=== PATIENT | male | born 1975 | race American Indian/Alaskan Native ===

== ENCOUNTER 2019-11-20 21:55 | Observation (INO) | payer MEDICAID ==
[2019-11-20] MEDS ORDERED: ASPIRIN 81 MG TAB CHEW PO ONE (22:08)
[2019-11-20] MEDS ORDERED: NITROGLYCERIN 2% OINT 1 GM TP ONE (22:08)
[2019-11-20] MEDS ORDERED: MORPHINE 4 MG/1 ML INJ IV ONE ×2 (22:14→23:07)
[2019-11-20 22:51] LABS: Hematocrit 27.2 % (35.5-45.6); Mean Corpuscular HGB Conc 33 % (32-34); Mean Corpuscular Volume 84 fl (84-94); Platelet Count 281 K/mm3 (140-440); Red Blood Count 3.23 M/mm3 (3.65-5.03); Red Cell Distribution Width 14.8 % (13.2-15.2)
[2019-11-20 23:11] LABS: INR 0.98 (0.87-1.13)
[2019-11-20 23:17] LABS: Albumin 4.5 g/dL (3.9-5); Calcium 9.6 mg/dL (8.4-10.2)
[2019-11-21] MEDS ORDERED: FUROSEMIDE 40 MG/4 ML INJ IV ONE (00:01)
[2019-11-21] MEDS ORDERED: ASPIRIN 325 MG TAB PO ONE (00:01)
[2019-11-21] MEDS ORDERED: hydrALAZINE 20 MG/1 ML INJ IV ONE (00:01)
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
[2019-11-21 00:12] LABS: Chol/HDL Ratio 3.53 %
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
[2019-11-21] MEDS ORDERED: niCARdipine DRIP 40 MG/200 ML BAG ONE (01:37)
[2019-11-21] MEDS: niCARdipine 50 MG in SODIUM CHLORIDE 0.9% 250ML 230 ML IV SCH ×3 (01:48→07:46)
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
--- NOTE | 2019-11-21 03:02 | Cat Scan Report ---
CT HEAD WITHOUT CONTRAST INDICATION: evaluation of interval change of subarachnoid. TECHNIQUE: All CT scans at this location are performed using CT dose reduction for ALARA by means of automated e xposure control. COMPARISON: One day prior. FINDINGS: HEMORRHAGE: There is no significant change in the punctate subarachnoid densities along the anterior falx and at the right frontoparietal region. EXTRA-AXIAL SPACES: Normal in size and morphology for the patient's age. VENTRICULAR SYSTEM: Normal in size and morphology for the patient's age. BRAIN PARENCHYMA: No acute findings. MIDLINE SHIFT OR HERNIATION: None. ORBITS: Normal as visualized. SOFT TISSUES OF HEAD: Normal. CALVARIUM: Normal. VISUALIZED PARANASAL SINUSES AND MASTOID AIR CELLS: Clear. ADDITIONAL FINDINGS: None. IMPRESSION: 1. No significant change. Punctate subarachnoid densities seen on the exam from one day prior are sta ble. Signer Name: Tj Thacker MD Signed: 11/21/2019 2:57 AM Workstation Name: [id number]
[2019-11-21 03:06] LABS: Total Cells Counted 100
[2019-11-21 03:08] LABS: Anisocytosis Few; Ovalocytes Few; Target Cells Few
[2019-11-21 03:09] LABS: Platelet Estimate Consistent w Auto
[2019-11-21] MEDS ORDERED: ONDANSETRON 4 MG/2 ML INJ IV PRN (03:44)
[2019-11-21] MEDS ORDERED: MAGNESIUM HYDROXIDE (MOM) ORAL LIQD UDC PO PRN (03:44)
[2019-11-21] MEDS ORDERED: ACETAMINOPHEN 325 MG TAB PO PRN (03:44)
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
[2019-11-21 04:56] LABS: Amphetamine Screen,Urine PRESUMPTIVE NEGATIVE; Benzodiazepines Screen,Urine PRESUMPTIVE NEGATIVE; Cannabinoid Screen,Urine PRESUMPTIVE POSITIVE; Cocaine Screen,Urine PRESUMPTIVE POSITIVE; Methadone Screen,Urine PRESUMPTIVE NEGATIVE; Opiate Screen,Urine PRESUMPTIVE NEGATIVE
[2019-11-21] MEDS ORDERED: ONDANSETRON 4 MG/2 ML INJ ONE (05:49)
[2019-11-21] MEDS ORDERED: SODIUM CHLORIDE 0.9% 100 ML IV PRN (08:27)
[2019-11-21] MEDS ORDERED: HEPARIN 10,000 UNITS/10 ML VIAL IV PRN (08:27)
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
[2019-11-21] MEDS ORDERED: SODIUM CHLORIDE IV PRN (09:00)
[2019-11-21] MEDS ORDERED: NICARDIPINE IV PRN (09:00)
[2019-11-21 10:04] LABS: Hepatitis B Surface Antigen Non-Reactive (Negative); Hepatitis C Virus Antibody Non-Reactive (NonReactive)
[2019-11-21] MEDS ORDERED: hydrALAZINE 25 MG TAB ONE (10:14)
[2019-11-21] MEDS: hydrALAZINE 25 MG TAB PO SCH ×3 (10:51→21:55)
[2019-11-21] MEDS: NIFEdipine XL 30 MG TAB PO SCH ×2 (12:09→21:53)
[2019-11-21] MEDS ORDERED: oxyCODONE /ACETAMINOPHEN 5-325MG TAB ONE (12:46)
[2019-11-21] MEDS: oxyCODONE /ACETAMINOPHEN 5-325MG TAB PO PRN ×2 (12:48→19:32)
[2019-11-22] MEDS: oxyCODONE /ACETAMINOPHEN 5-325MG TAB PO PRN ×3 (05:57→18:53)
[2019-11-22] MEDS: hydrALAZINE 25 MG TAB PO SCH (05:57)
[2019-11-22 06:18] LABS: Basophils # (Auto) 0.2 K/mm3 (0.0-0.1); Basophils % (Auto) 2.9 % (0.0-1.8); Eosinophils # (Auto) 0.3 K/mm3 (0.0-0.4); Eosinophils % (Auto) 3.7 % (0.0-4.3); Hematocrit 28.6 % (35.5-45.6); Hemoglobin 9.6 gm/dl (11.8-15.2); Lymphocytes # (Auto) 2.2 K/mm3 (1.2-5.4); Lymphocytes % (Auto) 26.9 % (13.4-35.0); Mean Corpuscular HGB Conc 34 % (32-34); Mean Corpuscular Volume 85 fl (84-94); Monocytes # (Auto) 0.6 K/mm3 (0.0-0.8); Platelet Count 319 K/mm3 (140-440); Red Blood Count 3.37 M/mm3 (3.65-5.03); Red Cell Distribution Width 14.7 % (13.2-15.2)
[2019-11-22 06:19] LABS: INR 0.96 (0.87-1.13)
[2019-11-22 06:23] LABS: Calcium 9.2 mg/dL (8.4-10.2)
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
[2019-11-22] MEDS: hydrALAZINE 100 MG TAB PO SCH ×3 (09:42→22:58)
[2019-11-22] MEDS: NIFEdipine XL 30 MG TAB PO SCH ×2 (09:42→22:58)
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
[2019-11-23] MEDS: hydrALAZINE 100 MG TAB PO SCH ×3 (06:17→21:31)
[2019-11-23] MEDS: oxyCODONE /ACETAMINOPHEN 5-325MG TAB PO PRN ×3 (06:25→20:11)
[2019-11-23] MEDS ORDERED: SODIUM CHLORIDE 0.9% 100 ML IV PRN (09:00)
[2019-11-23] MEDS: NIFEdipine XL 30 MG TAB PO SCH ×2 (11:08→21:30)
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
[2019-11-24] MEDS: hydrALAZINE 100 MG TAB PO SCH ×2 (06:14→13:04)
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
[2019-11-24] MEDS: NIFEdipine XL 30 MG TAB PO SCH (10:09)
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
--- NOTE | 2019-11-24 13:20 | Discharge Summary ---
Providers - Providers Date of Admission: 11/21/19 03:14 Date of discharge: 11/24/19 Attending physician: MANDY CONDE 11/21/19 03:11 Consult to Physician [CONS] Urgent Comment: Consulting Provider: RITA DE LA VEGA Physician Instructions: Reason For Exam: esrd noncompliant with dialysis 11/21/19 07:45 Consult to Physician [CONS] Routine Comment: Consulting Provider: SARAH COLBY II Physician Instructions: Reason For Exam: ?Punctate subarachnoid densities 11/21/19 16:50 Consult to Dietitian/Nutrition [CONS] Routine Physician Instructions: Reason For Exam: Reason for Consult: Poor oral intake Primary care physician: TOWEL SEWER Hospitalization Condition: Stable Disposition: [id number] LEFT AGAINST MED ADVICE Core Measure Documentation - Palliative Care Palliative Care/ Comfort Measures: Not Applicable Exam - Constitutional Vitals: Temp Pulse Resp BP Pulse Ox 97.8 F 76 20 171/95 99 11/23/19 21:35 11/24/19 10:11 11/23/19 22:00 11/24/19 10:11 11/24/19 10:00 Plan Follow up with: PRIMARY MD CONNIE [Primary Care Provider] - 3-5 Days
[2019-11-24 13:21] VITALS: BP 191/102
== END 2019-11-24 13:00 | disposition left against medical advice (07) ==
LOC: ED 21:55 → CC1 11-21 03:14 → 3A 11-21 12:32
PROVIDERS: ADMIT Internal Medicine Geriatric Medicine; ATTEND Internal Medicine
DX: I16.0 Hypertensive urgency (principal); I12.0 Hypertensive chronic kidney disease with stage 5 chronic kidney disease or end stage renal disease; N18.6 End stage renal disease; I21.A1 Myocardial infarction type 2; D63.1 Anemia in chronic kidney disease; F17.200 Nicotine dependence, unspecified, uncomplicated; F14.10 Cocaine abuse, uncomplicated; F12.10 Cannabis abuse, uncomplicated; R07.89 Other chest pain; Z91.15 Patient's noncompliance with renal dialysis; Z99.2 Dependence on renal dialysis; Z79.899 Other long term (current) drug therapy; V87.7XXA Person injured in collision between other specified motor vehicles (traffic), initial encounter; Y93.89 Activity, other specified; Y92.89 Other specified places as the place of occurrence of the external cause; Y99.8 Other external cause status
CPT/HCPCS: 36415; 70450; 71250; 72125; 73060; 73090; 74176; 80048; 80053; 80061; 80074; 80307; 84484; 85025; 85610; 85730; 87641; 93005; 96365; 96366; 96375; 96376; 99291; G0378; J1940; J2270; J2405; J7050; 85007